=== PATIENT | male | born 1945 | race Caucasian/White ===

== ENCOUNTER 2024-08-08 11:53 | Outpatient (CLI) | payer OTHER | END 2024-08-08 11:54 | disposition home or self-care (01) | LOC: CSHULT 11:53 | DX: I63.531 Cerebral infarction due to unspecified occlusion or stenosis of right posterior cerebral artery (principal); I63.9 Cerebral infarction, unspecified; R93.1 Abnormal findings on diagnostic imaging of heart and coronary circulation | CPT/HCPCS: 93306; 93880 ==